=== PATIENT | male | born 1960 | race Caucasian/White ===

== ENCOUNTER 2022-06-28 18:04 | Emergency (ER) | payer MEDICARE, MEDICAID ==
[2022-06-28] MEDS: Morphine 2 MG/ML SYRINGE IVPUSH ONE (18:30)
[2022-06-28] MEDS: HYDROmorphone 1 MG/ML Syringe IVPUSH ONE ×2 (19:45→22:24)
[2022-06-28] MEDS: Take Home: Acetaminophen/oxyCODONE 325-5 MG, 5 Tab Pack PO ONE (23:11)
[2022-06-29 01:29] VITALS: BP 118/65; PULSE 75
== END 2022-06-28 23:40 | disposition home or self-care (01) ==
LOC: VM.ED 18:04
DX: S82.61XA Displaced fracture of lateral malleolus of right fibula, initial encounter for closed fracture (principal); I11.0 Hypertensive heart disease with heart failure; I50.9 Heart failure, unspecified; J44.9 Chronic obstructive pulmonary disease, unspecified; Z88.6 Allergy status to analgesic agent; Z79.01 Long term (current) use of anticoagulants; Z79.899 Other long term (current) drug therapy; W18.39XA Other fall on same level, initial encounter
CPT/HCPCS: 73610; 73620; 73700; 96374; 96375; 96376; 99284; A9270; J1170; J2270

== ENCOUNTER 2023-11-04 20:12 | Emergency (ER) | payer MEDICARE, MEDICAID ==
[2023-11-04 20:39] VITALS: BP 97/54; PULSE 70
[2023-11-04] MEDS: Take Home: Acetaminophen/HYDROcodone 325-5 MG, 5 Tab Pack PO ONE (21:20)
[2023-11-04] MEDS: methylPREDNISolone Sodium Succinate 125 MG/2 ML SDV IM ONE (21:20)
[2023-11-04] MEDS: Orphenadrine 60 MG/2 ML Inj IM ONE (21:20)
== END 2023-11-04 21:37 | disposition home or self-care (01) ==
LOC: VM.ED 20:12
DX: I87.8 Other specified disorders of veins (principal); M25.552 Pain in left hip; M54.50 Low back pain, unspecified; I11.0 Hypertensive heart disease with heart failure; I50.9 Heart failure, unspecified; J44.9 Chronic obstructive pulmonary disease, unspecified; I48.91 Unspecified atrial fibrillation; E11.9 Type 2 diabetes mellitus without complications; F17.200 Nicotine dependence, unspecified, uncomplicated; Z79.01 Long term (current) use of anticoagulants; Z88.6 Allergy status to analgesic agent; Z79.899 Other long term (current) drug therapy; Z79.51 Long term (current) use of inhaled steroids
CPT/HCPCS: 96372; 99283; A9270-GY; J2360; J2930

== ENCOUNTER 2024-07-02 12:05 | Inpatient (IN) | payer MEDICARE, MEDICAID ==
[2024-07-02] MEDS: Albuterol/Ipratropium 3.0-0.5 MG/3 ML Neb Soln NEB ONE (12:40)
[2024-07-02 12:57] LABS: BASOPHILS ABSOLUTE AUTO 0.1 x10^3/uL (0.0-0.2); BASOPHILS PERCENT AUTO 0.9 % (0.2-1.2); EOSINOPHILS ABSOLUTE AUTO 0.2 x10^3/uL (0.0-0.5); EOSINOPHILS PERCENT AUTO 2.8 % (0.0-4.0); HEMATOCRIT 35.1 % (40.0-52.0); HEMOGLOBIN 11.2 g/dL (14.0-18.0); IMMATURE GRAN ABSOLUTE AUTO 0.02 x10^3/uL (0.00-0.07); LYMPHOCYTES ABSOLUTE AUTO 0.9 x10^3/uL (1.0-4.8); LYMPHOCYTES PERCENT AUTO 15.1 % (25.0-50.0); MEAN CORPUSCULAR HEMOGLOBIN 30.5 pg (26.0-32.0); MEAN CORPUSCULAR HGB CONC 31.9 g/dL (32.0-36.0); MEAN CORPUSCULAR VOLUME 95.6 fL (78.0-93.0); MONOCYTES PERCENT AUTO 16.6 % (2.0-11.0); NEUTROPHILS ABSOLUTE AUTO 3.7 x10^3/uL (1.8-7.7); NEUTROPHILS PERCENT AUTO 64.3 % (50.0-80.0); PLATELET COUNT,PLT 147 x10^3/uL (130-400); RED BLOOD CELL COUNT 3.67 x10^6/uL (4.5-6.0); WHITE BLOOD CELL COUNT,WBC 5.8 x10^3/uL (4.0-10.0)
[2024-07-02 13:02] LABS: A/G RATIO 0.67; ALBUMIN 3.2 g/dL (3.4-5.0); BILIRUBIN TOTAL 1.2 mg/dL (0.2-1.0); CALCIUM 9.2 mg/dL (8.5-10.1); CREATININE 1.3 mg/dL (0.70-1.30); EST CRCL DRUG DOSING (CG) 53.67 mL/min
[2024-07-02] MEDS: cefTRIAXone 1 GM Vial IVPUSH ONE (13:56)
[2024-07-02] MEDS: Azithromycin 500 MG in Sodium Chloride 0.9% 250 ML IV ONE (13:59)
[2024-07-02 14:21] LABS: LACTIC ACID 1.3 mmol/L (0.4-2.0)
[2024-07-02 15:43] LABS: INR 4.9 (0.9-1.1); PROTHROMBIN TIME 45.3 SEC (8.9-11.5)
[2024-07-02] MEDS ORDERED: Nitroglycerin 0.4 MG Tab.SL SL PRN (15:48)
[2024-07-02] MEDS ORDERED: Warfarin 5 MG Tab PO SCH (16:00)
[2024-07-02] MEDS: Arformoterol 15 MCG/2 ML Neb Soln NEB SCH (17:09)
[2024-07-02] MEDS: methylPREDNISolone Sodium Succinate 40 MG/1 ML SDV IVPUSH SCH (17:10)
[2024-07-02] MEDS: Nicotine 14 MG/24 Hr Patch TRDERM SCH (17:11)
[2024-07-02] MEDS: levETIRAcetam 500 MG Tab PO SCH (21:59)
[2024-07-02] MEDS: Metoprolol Tartrate 50 MG Tab PO SCH (21:59)
[2024-07-02] MEDS: Digoxin 125 MCG Tab PO SCH (22:01)
[2024-07-02] MEDS: atorvaSTATin 10 MG Tab PO SCH (22:02)
[2024-07-02] MEDS: Sennosides/Docusate Sodium 50-8.6 MG Tab PO SCH (22:02)
[2024-07-02] MEDS: Albuterol/Ipratropium 3.0-0.5 MG/3 ML Neb Soln NEB SCH (22:06)
[2024-07-03] MEDS: Acetaminophen 650 MG Tab.ER PO PRN (03:39)
[2024-07-03] MEDS: Levothyroxine 75 MCG Tab PO SCH (06:30)
[2024-07-03 07:55] LABS: BASOPHILS PERCENT AUTO 0.3 % (0.2-1.2); HEMATOCRIT 31.9 % (40.0-52.0); HEMOGLOBIN 10.1 g/dL (14.0-18.0); IMMATURE GRAN ABSOLUTE AUTO 0.01 x10^3/uL (0.00-0.07); LYMPHOCYTES ABSOLUTE AUTO 0.5 x10^3/uL (1.0-4.8); LYMPHOCYTES PERCENT AUTO 15.1 % (25.0-50.0); MEAN CORPUSCULAR HGB CONC 31.7 g/dL (32.0-36.0); MEAN CORPUSCULAR VOLUME 94.7 fL (78.0-93.0); MONOCYTES ABSOLUTE AUTO 0.1 x10^3/uL (0.0-0.8); MONOCYTES PERCENT AUTO 3.1 % (2.0-11.0); NEUTROPHILS ABSOLUTE AUTO 2.8 x10^3/uL (1.8-7.7); NEUTROPHILS PERCENT AUTO 81.2 % (50.0-80.0); PLATELET COUNT,PLT 129 x10^3/uL (130-400); RED BLOOD CELL COUNT 3.37 x10^6/uL (4.5-6.0); WHITE BLOOD CELL COUNT,WBC 3.5 x10^3/uL (4.0-10.0)
[2024-07-03 08:12] LABS: A/G RATIO 0.63; ALBUMIN 2.9 g/dL (3.4-5.0); BILIRUBIN TOTAL 0.7 mg/dL (0.2-1.0); CALCIUM 9.1 mg/dL (8.5-10.1); CREATININE 1.5 mg/dL (0.70-1.30); EST CRCL DRUG DOSING (CG) 46.51 mL/min; PROTEIN TOTAL,TP 7.5 g/dL (6.4-8.2)
[2024-07-03 08:13] LABS: INR 4.8 (0.9-1.1)
[2024-07-03] MEDS: cefTRIAXone 1 GM Vial IVPUSH SCH (08:22)
[2024-07-03] MEDS: Diltiazem 180 MG Cap.CD PO SCH (08:25)
[2024-07-03] MEDS: Azithromycin 250 MG Tab PO SCH (08:27)
[2024-07-03] MEDS: Magnesium Oxide 400 MG Tab PO SCH (08:27)
[2024-07-03] MEDS: Multivitamin Tab PO SCH (08:28)
[2024-07-03] MEDS: Albuterol 0.083% 2.5 MG/3 ML Neb Soln NEB PRN (11:48)
[2024-07-04 08:15] LABS: BASOPHILS PERCENT AUTO 0.1 % (0.2-1.2); HEMATOCRIT 32.3 % (40.0-52.0); HEMOGLOBIN 10.5 g/dL (14.0-18.0); IMMATURE GRAN ABSOLUTE AUTO 0.03 x10^3/uL (0.00-0.07); LYMPHOCYTES ABSOLUTE AUTO 0.5 x10^3/uL (1.0-4.8); LYMPHOCYTES PERCENT AUTO 6.8 % (25.0-50.0); MEAN CORPUSCULAR HGB CONC 32.5 g/dL (32.0-36.0); MEAN CORPUSCULAR VOLUME 95.3 fL (78.0-93.0); MONOCYTES ABSOLUTE AUTO 0.4 x10^3/uL (0.0-0.8); MONOCYTES PERCENT AUTO 5.2 % (2.0-11.0); NEUTROPHILS ABSOLUTE AUTO 6.6 x10^3/uL (1.8-7.7); NEUTROPHILS PERCENT AUTO 87.5 % (50.0-80.0); PLATELET COUNT,PLT 145 x10^3/uL (130-400); RED BLOOD CELL COUNT 3.39 x10^6/uL (4.5-6.0); WHITE BLOOD CELL COUNT,WBC 7.6 x10^3/uL (4.0-10.0)
[2024-07-04 08:35] LABS: A/G RATIO 0.65; ALBUMIN 3.1 g/dL (3.4-5.0); ANION GAP 9.5 mmol/L (5-15); BILIRUBIN TOTAL 0.5 mg/dL (0.2-1.0); CALCIUM 9.8 mg/dL (8.5-10.1); CREATININE 1.7 mg/dL (0.70-1.30); EST CRCL DRUG DOSING (CG) 41.04 mL/min; POTASSIUM,K 4.5 mmol/L (3.5-5.1); PROTEIN TOTAL,TP 7.9 g/dL (6.4-8.2)
[2024-07-04 08:56] LABS: INR 3.4 (0.9-1.1); PROTHROMBIN TIME 32.3 SEC (8.9-11.5)
[2024-07-05 07:19] LABS: BASOPHILS PERCENT AUTO 0.1 % (0.2-1.2); HEMATOCRIT 31.7 % (40.0-52.0); HEMOGLOBIN 10.4 g/dL (14.0-18.0); IMMATURE GRAN ABSOLUTE AUTO 0.05 x10^3/uL (0.00-0.07); LYMPHOCYTES ABSOLUTE AUTO 0.4 x10^3/uL (1.0-4.8); LYMPHOCYTES PERCENT AUTO 5.1 % (25.0-50.0); MEAN CORPUSCULAR HEMOGLOBIN 30.9 pg (26.0-32.0); MEAN CORPUSCULAR HGB CONC 32.8 g/dL (32.0-36.0); MEAN CORPUSCULAR VOLUME 94.1 fL (78.0-93.0); MONOCYTES ABSOLUTE AUTO 0.5 x10^3/uL (0.0-0.8); MONOCYTES PERCENT AUTO 6.4 % (2.0-11.0); NEUTROPHILS ABSOLUTE AUTO 7.2 x10^3/uL (1.8-7.7); NEUTROPHILS PERCENT AUTO 87.8 % (50.0-80.0); PLATELET COUNT,PLT 151 x10^3/uL (130-400); RED BLOOD CELL COUNT 3.37 x10^6/uL (4.5-6.0); WHITE BLOOD CELL COUNT,WBC 8.2 x10^3/uL (4.0-10.0)
[2024-07-05 07:44] LABS: A/G RATIO 0.66; ALBUMIN 3.1 g/dL (3.4-5.0); BILIRUBIN TOTAL 0.5 mg/dL (0.2-1.0); CALCIUM 10.2 mg/dL (8.5-10.1); CREATININE 1.4 mg/dL (0.70-1.30); EST CRCL DRUG DOSING (CG) 49.84 mL/min; POTASSIUM,K 4.7 mmol/L (3.5-5.1); PROTEIN TOTAL,TP 7.8 g/dL (6.4-8.2)
[2024-07-05 07:56] LABS: ANION GAP 3.7 mmol/L (5-15)
[2024-07-05 08:20] LABS: INR 2.4 (0.9-1.1); PROTHROMBIN TIME 23.5 SEC (8.9-11.5)
[2024-07-05] MEDS: Bumetanide 1 MG Tab PO SCH (14:36)
[2024-07-05] MEDS: Cholecalciferol (Vitamin D3) 25 MCG Tab PO SCH (14:37)
[2024-07-05] MEDS: Warfarin 5 MG Tab PO SCH (21:14)
[2024-07-06 07:00] LABS: BASOPHILS PERCENT AUTO 0.1 % (0.2-1.2); HEMATOCRIT 32.7 % (40.0-52.0); HEMOGLOBIN 10.6 g/dL (14.0-18.0); IMMATURE GRAN ABSOLUTE AUTO 0.03 x10^3/uL (0.00-0.07); LYMPHOCYTES ABSOLUTE AUTO 0.9 x10^3/uL (1.0-4.8); LYMPHOCYTES PERCENT AUTO 11.9 % (25.0-50.0); MEAN CORPUSCULAR HEMOGLOBIN 30.7 pg (26.0-32.0); MEAN CORPUSCULAR HGB CONC 32.4 g/dL (32.0-36.0); MEAN CORPUSCULAR VOLUME 94.8 fL (78.0-93.0); MONOCYTES ABSOLUTE AUTO 1.2 x10^3/uL (0.0-0.8); NEUTROPHILS ABSOLUTE AUTO 5.3 x10^3/uL (1.8-7.7); NEUTROPHILS PERCENT AUTO 71.6 % (50.0-80.0); PLATELET COUNT,PLT 149 x10^3/uL (130-400); RED BLOOD CELL COUNT 3.45 x10^6/uL (4.5-6.0); WHITE BLOOD CELL COUNT,WBC 7.4 x10^3/uL (4.0-10.0)
[2024-07-06 07:15] LABS: INR 1.8 (0.9-1.1); PROTHROMBIN TIME 17.7 SEC (8.9-11.5)
[2024-07-06 07:21] LABS: A/G RATIO 0.7; ALBUMIN 3.2 g/dL (3.4-5.0); BILIRUBIN TOTAL 0.5 mg/dL (0.2-1.0); CALCIUM 10.5 mg/dL (8.5-10.1); CREATININE 1.3 mg/dL (0.70-1.30); EST CRCL DRUG DOSING (CG) 53.67 mL/min; POTASSIUM,K 4.9 mmol/L (3.5-5.1); PROTEIN TOTAL,TP 7.8 g/dL (6.4-8.2)
[2024-07-06 07:23] LABS: ANION GAP 4.9 mmol/L (5-15)
[2024-07-06] MEDS ORDERED: guaiFENesin/Dextromethorphan 100-10 MG/5 ML Soln 10 ML Cup PO PRN (08:34)
[2024-07-06] MEDS ORDERED: predniSONE 20 MG Tab PO SCH (09:15)
[2024-07-06] MEDS: Cefuroxime 250 MG Tab PO SCH (09:20)
[2024-07-06 10:50] VITALS: BP 119/66; PULSE 84
== END 2024-07-06 11:50 | disposition home health service (06) | DRG 193 ==
LOC: VM.ED 12:05 → VM.MS 14:25
PROVIDERS: ADMIT Internal Medicine; ATTEND Internal Medicine
DX: J18.9 Pneumonia, unspecified organism (principal); J44.1 Chronic obstructive pulmonary disease with (acute) exacerbation; I11.0 Hypertensive heart disease with heart failure; I50.9 Heart failure, unspecified; J96.21 Acute and chronic respiratory failure with hypoxia; I48.91 Unspecified atrial fibrillation; E11.9 Type 2 diabetes mellitus without complications; J44.0 Chronic obstructive pulmonary disease with (acute) lower respiratory infection; Z79.51 Long term (current) use of inhaled steroids; Z68.41 Body mass index [BMI] 40.0-44.9, adult; Z88.5 Allergy status to narcotic agent; I50.32 Chronic diastolic (congestive) heart failure; I48.20 Chronic atrial fibrillation, unspecified; I13.0 Hypertensive heart and chronic kidney disease with heart failure and stage 1 through stage 4 chronic kidney disease, or unspecified chronic kidney disease; E78.00 Pure hypercholesterolemia, unspecified; F17.200 Nicotine dependence, unspecified, uncomplicated; E66.01 Morbid (severe) obesity due to excess calories; G40.909 Epilepsy, unspecified, not intractable, without status epilepticus; G47.33 Obstructive sleep apnea (adult) (pediatric); E03.9 Hypothyroidism, unspecified; I89.0 Lymphedema, not elsewhere classified; K74.60 Unspecified cirrhosis of liver; N18.9 Chronic kidney disease, unspecified; E11.22 Type 2 diabetes mellitus with diabetic chronic kidney disease; E11.65 Type 2 diabetes mellitus with hyperglycemia; D63.1 Anemia in chronic kidney disease; I25.2 Old myocardial infarction; Z99.81 Dependence on supplemental oxygen; Z88.8 Allergy status to other drugs, medicaments and biological substances; Z79.01 Long term (current) use of anticoagulants; Z79.899 Other long term (current) drug therapy; Z98.49 Cataract extraction status, unspecified eye; Z86.718 Personal history of other venous thrombosis and embolism
CPT/HCPCS: 36415; 71045; 80053; 82947; 83605; 83880; 84484; 85025; 85610; 87040; 87070; 87205; 87428-QW; 93010; 94640; 94667; 94760; 96365; 96375; 97116-GP; 97161-GP; 97165-GO; 97530-GP; 97535-GO; 99232; 99233; 99284; 99285-25; A9270-GY; J0456; J0696; J2919; J3490; J7050; J7613-GY; J7620-GY

== ENCOUNTER 2024-07-08 12:44 | Inpatient (IN) | payer MEDICARE, MEDICAID ==
[2024-07-08] MEDS ORDERED: Albuterol 0.083% 2.5 MG/3 ML Neb Soln NEB PRN (15:39)
[2024-07-08] MEDS ORDERED: Nitroglycerin 0.4 MG Tab.SL SL PRN (15:39)
[2024-07-08] MEDS: Formoterol/Mometasone 200-5 MCG 13 GM Inhaler INH SCH (20:33)
[2024-07-08] MEDS: levETIRAcetam 500 MG Tab PO SCH (20:34)
[2024-07-08] MEDS: Metoprolol Tartrate 50 MG Tab PO SCH (20:34)
[2024-07-08] MEDS: Ipratropium 0.02% 0.5 MG/2.5 ML Neb Soln INH SCH (20:34)
[2024-07-08] MEDS: Sennosides 8.6 MG Tab PO SCH (20:35)
[2024-07-08] MEDS: Warfarin 2.5 MG Tab PO SCH (20:35)
[2024-07-08] MEDS: Digoxin 125 MCG Tab PO SCH (20:36)
[2024-07-08] MEDS: Cefuroxime 250 MG Tab PO SCH (20:36)
[2024-07-08] MEDS: atorvaSTATin 10 MG Tab PO SCH (20:36)
[2024-07-08] MEDS: Bumetanide 1 MG Tab PO SCH (20:36)
[2024-07-09] MEDS: Levothyroxine 75 MCG Tab PO SCH (06:24)
[2024-07-09 07:15] LABS: INR 1.9 (0.9-1.1); PROTHROMBIN TIME 18.3 SEC (8.9-11.5)
[2024-07-09] MEDS: Potassium Chloride 20 MEQ Tab.ER PO SCH (08:47)
[2024-07-09] MEDS: Cholecalciferol (Vitamin D3) 25 MCG Tab PO SCH (08:47)
[2024-07-09] MEDS: Diltiazem 180 MG Cap.CD PO SCH (08:47)
[2024-07-09] MEDS: Magnesium Oxide 400 MG Tab PO SCH (08:47)
[2024-07-09] MEDS: predniSONE 20 MG Tab PO SCH (08:47)
[2024-07-09] MEDS: Multivitamin Tab PO SCH (08:47)
[2024-07-09] MEDS: Nicotine 14 MG/24 Hr Patch TRDERM SCH (08:48)
[2024-07-09] MEDS: Acetaminophen 325 MG Tab PO PRN (12:19)
[2024-07-09] MEDS: guaiFENesin/Dextromethorphan 100-10 MG/5 ML Soln 10 ML Cup PO PRN (15:32)
[2024-07-09] MEDS: Warfarin 5 MG Tab PO SCH (20:37)
[2024-07-12 07:15] LABS: BASOPHILS PERCENT AUTO 0.1 % (0.2-1.2); EOSINOPHILS ABSOLUTE AUTO 0.1 x10^3/uL (0.0-0.5); EOSINOPHILS PERCENT AUTO 1.2 % (0.0-4.0); HEMOGLOBIN 10.6 g/dL (14.0-18.0); IMMATURE GRAN ABSOLUTE AUTO 0.03 x10^3/uL (0.00-0.07); LYMPHOCYTES ABSOLUTE AUTO 1.5 x10^3/uL (1.0-4.8); LYMPHOCYTES PERCENT AUTO 18.9 % (25.0-50.0); MEAN CORPUSCULAR HEMOGLOBIN 30.6 pg (26.0-32.0); MEAN CORPUSCULAR HGB CONC 33.1 g/dL (32.0-36.0); MEAN CORPUSCULAR VOLUME 92.5 fL (78.0-93.0); MONOCYTES ABSOLUTE AUTO 1.1 x10^3/uL (0.0-0.8); MONOCYTES PERCENT AUTO 14.2 % (2.0-11.0); NEUTROPHILS ABSOLUTE AUTO 5.2 x10^3/uL (1.8-7.7); NEUTROPHILS PERCENT AUTO 65.2 % (50.0-80.0); PLATELET COUNT,PLT 117 x10^3/uL (130-400); RED BLOOD CELL COUNT 3.46 x10^6/uL (4.5-6.0)
[2024-07-12 07:21] LABS: CALCIUM 9.3 mg/dL (8.5-10.1); CREATININE 1.1 mg/dL (0.70-1.30); EST CRCL DRUG DOSING (CG) 63.43 mL/min
[2024-07-12 07:22] LABS: PROTHROMBIN TIME 19.4 SEC (8.9-11.5)
[2024-07-13] MEDS: Albuterol/Ipratropium 3.0-0.5 MG/3 ML Neb Soln NEB PRN (07:14)
[2024-07-13] MEDS: Tiotropium Bromide 4 GM Inhalation Spray (2.5mcg/1 dose; 10 doses) INH SCH (14:50)
[2024-07-19 07:01] LABS: BASOPHILS PERCENT AUTO 0.6 % (0.2-1.2); EOSINOPHILS ABSOLUTE AUTO 0.2 x10^3/uL (0.0-0.5); EOSINOPHILS PERCENT AUTO 2.1 % (0.0-4.0); HEMOGLOBIN 9.7 g/dL (14.0-18.0); IMMATURE GRAN ABSOLUTE AUTO 0.01 x10^3/uL (0.00-0.07); LYMPHOCYTES ABSOLUTE AUTO 1.1 x10^3/uL (1.0-4.8); LYMPHOCYTES PERCENT AUTO 15.8 % (25.0-50.0); MEAN CORPUSCULAR HEMOGLOBIN 29.9 pg (26.0-32.0); MEAN CORPUSCULAR HGB CONC 31.3 g/dL (32.0-36.0); MEAN CORPUSCULAR VOLUME 95.7 fL (78.0-93.0); MONOCYTES ABSOLUTE AUTO 1.1 x10^3/uL (0.0-0.8); MONOCYTES PERCENT AUTO 15.2 % (2.0-11.0); NEUTROPHILS ABSOLUTE AUTO 4.7 x10^3/uL (1.8-7.7); NEUTROPHILS PERCENT AUTO 66.2 % (50.0-80.0); PLATELET COUNT,PLT 115 x10^3/uL (130-400); RED BLOOD CELL COUNT 3.24 x10^6/uL (4.5-6.0); WHITE BLOOD CELL COUNT,WBC 7.1 x10^3/uL (4.0-10.0)
[2024-07-19 07:13] LABS: CALCIUM 9.5 mg/dL (8.5-10.1); CREATININE 1.3 mg/dL (0.70-1.30); EST CRCL DRUG DOSING (CG) 52.96 mL/min; POTASSIUM,K 4.4 mmol/L (3.5-5.1)
[2024-07-19 07:14] LABS: ANION GAP 1.4 mmol/L (5-15)
[2024-07-19 07:16] LABS: PROTHROMBIN TIME 19.3 SEC (8.9-11.5)
[2024-07-19] MEDS: Bumetanide 1 MG Tab PO SCH (09:51)
[2024-07-19] MEDS: Furosemide 40 MG/4 ML VIAL IV ONE (10:21)
[2024-07-19] MEDS: Sodium Chloride 0.9% 10 ML Syringe FLUSH PRN (10:23)
[2024-07-19] MEDS: Famotidine 20 MG Tab PO SCH (13:00)
[2024-07-20 06:52] LABS: BASOPHILS ABSOLUTE AUTO 0.1 x10^3/uL (0.0-0.2); BASOPHILS PERCENT AUTO 0.9 % (0.2-1.2); EOSINOPHILS ABSOLUTE AUTO 0.1 x10^3/uL (0.0-0.5); EOSINOPHILS PERCENT AUTO 2.3 % (0.0-4.0); HEMATOCRIT 30.6 % (40.0-52.0); HEMOGLOBIN 9.7 g/dL (14.0-18.0); LYMPHOCYTES PERCENT AUTO 17.3 % (25.0-50.0); MEAN CORPUSCULAR HEMOGLOBIN 30.2 pg (26.0-32.0); MEAN CORPUSCULAR HGB CONC 31.7 g/dL (32.0-36.0); MEAN CORPUSCULAR VOLUME 95.3 fL (78.0-93.0); MONOCYTES ABSOLUTE AUTO 0.9 x10^3/uL (0.0-0.8); MONOCYTES PERCENT AUTO 15.4 % (2.0-11.0); NEUTROPHILS ABSOLUTE AUTO 3.6 x10^3/uL (1.8-7.7); NEUTROPHILS PERCENT AUTO 64.1 % (50.0-80.0); PLATELET COUNT,PLT 111 x10^3/uL (130-400); RED BLOOD CELL COUNT 3.21 x10^6/uL (4.5-6.0); WHITE BLOOD CELL COUNT,WBC 5.6 x10^3/uL (4.0-10.0)
[2024-07-20 07:07] LABS: CALCIUM 8.6 mg/dL (8.5-10.1); CREATININE 1.3 mg/dL (0.70-1.30); EST CRCL DRUG DOSING (CG) 52.96 mL/min; POTASSIUM,K 4.2 mmol/L (3.5-5.1)
[2024-07-20 07:11] LABS: ANION GAP 5.2 mmol/L (5-15)
[2024-07-20] MEDS ORDERED: Furosemide 40 MG/4 ML VIAL IV ONE (08:19)
[2024-07-20] MEDS: Furosemide 100 MG/10 ML SDV IV ONE (08:53)
[2024-07-20] MEDS: Magnesium Oxide 400 MG Tab PO SCH (08:58)
[2024-07-20] MEDS: Spironolactone 25 MG Tab PO SCH (08:59)
[2024-07-20 10:49] VITALS: BP 104/64; PULSE 84
== END 2024-07-20 11:20 | disposition home health service (06) | DRG 948 ==
LOC: VM.MS 14:17
PROVIDERS: ADMIT Internal Medicine; ATTEND Internal Medicine
DX: R53.1 Weakness (principal); I50.32 Chronic diastolic (congestive) heart failure; Z68.42 Body mass index [BMI] 45.0-49.9, adult; I13.0 Hypertensive heart and chronic kidney disease with heart failure and stage 1 through stage 4 chronic kidney disease, or unspecified chronic kidney disease; J44.9 Chronic obstructive pulmonary disease, unspecified; E78.00 Pure hypercholesterolemia, unspecified; F17.210 Nicotine dependence, cigarettes, uncomplicated; I48.0 Paroxysmal atrial fibrillation; G47.33 Obstructive sleep apnea (adult) (pediatric); E66.01 Morbid (severe) obesity due to excess calories; G40.909 Epilepsy, unspecified, not intractable, without status epilepticus; R53.81 Other malaise; N18.9 Chronic kidney disease, unspecified; D63.1 Anemia in chronic kidney disease; E11.22 Type 2 diabetes mellitus with diabetic chronic kidney disease; Z99.81 Dependence on supplemental oxygen; Z88.8 Allergy status to other drugs, medicaments and biological substances; Z79.899 Other long term (current) drug therapy; Z79.01 Long term (current) use of anticoagulants; Z79.51 Long term (current) use of inhaled steroids; Z98.49 Cataract extraction status, unspecified eye
CPT/HCPCS: 36415; 80048; 83735; 85025; 85610; 94640; 94760; 95851-GO; 97110-GP; 97116-GP; 97161-GP; 97165-GO; 97535-GO; A9270-GY; J1940; J3490; J7512; J7620-GY

== ENCOUNTER 2024-07-28 15:08 | Inpatient (IN) | payer MEDICARE, MEDICAID ==
[2024-07-28] MEDS ORDERED: Sodium Chloride 0.9% 10 ML Syringe FLUSH PRN (16:09)
[2024-07-28 16:43] LABS: BASOPHILS PERCENT AUTO 0.6 % (0.2-1.2); EOSINOPHILS ABSOLUTE AUTO 0.2 x10^3/uL (0.0-0.5); EOSINOPHILS PERCENT AUTO 3.1 % (0.0-4.0); HEMOGLOBIN 10.5 g/dL (14.0-18.0); IMMATURE GRAN ABSOLUTE AUTO 0.01 x10^3/uL (0.00-0.07); LYMPHOCYTES ABSOLUTE AUTO 1.2 x10^3/uL (1.0-4.8); LYMPHOCYTES PERCENT AUTO 23.8 % (25.0-50.0); MEAN CORPUSCULAR HEMOGLOBIN 30.8 pg (26.0-32.0); MEAN CORPUSCULAR HGB CONC 31.8 g/dL (32.0-36.0); MEAN CORPUSCULAR VOLUME 96.8 fL (78.0-93.0); MONOCYTES ABSOLUTE AUTO 0.9 x10^3/uL (0.0-0.8); MONOCYTES PERCENT AUTO 18.7 % (2.0-11.0); NEUTROPHILS ABSOLUTE AUTO 2.6 x10^3/uL (1.8-7.7); NEUTROPHILS PERCENT AUTO 53.6 % (50.0-80.0); PLATELET COUNT,PLT 90 x10^3/uL (130-400); RED BLOOD CELL COUNT 3.41 x10^6/uL (4.5-6.0); WHITE BLOOD CELL COUNT,WBC 4.9 x10^3/uL (4.0-10.0)
[2024-07-28 16:54] LABS: INR 1.9 (0.9-1.1); PROTHROMBIN TIME 19.1 SEC (8.9-11.5)
[2024-07-28] MEDS ORDERED: Sennosides/Docusate Sodium 50-8.6 MG Tab PO PRN (16:55)
[2024-07-28] MEDS ORDERED: Nitroglycerin 0.4 MG Tab.SL SL PRN (16:55)
[2024-07-28] MEDS ORDERED: Albuterol 0.083% 2.5 MG/3 ML Neb Soln NEB PRN (16:55)
[2024-07-28 17:23] LABS: HCO3 VENOUS,POC 42 mmol/L (22-29); O2 SATURATION VENOUS,POC 82 %; PCO2 VENOUS,POC 68 mmHg (41-51); PO2 VENOUS,POC 48 mmHg
[2024-07-28 17:33] LABS: A/G RATIO 0.82; ALBUMIN 3.1 g/dL (3.4-5.0); BILIRUBIN TOTAL 1.3 mg/dL (0.2-1.0); CALCIUM 9.7 mg/dL (8.5-10.1); CREATININE 1.3 mg/dL (0.70-1.30); EST CRCL DRUG DOSING (CG) 52.96 mL/min; POTASSIUM,K 3.8 mmol/L (3.5-5.1); PROTEIN TOTAL,TP 6.9 g/dL (6.4-8.2)
[2024-07-28] MEDS: Furosemide 40 MG/4 ML VIAL IV ONE (17:53)
[2024-07-28] MEDS: Magnesium Sulfate/Water Premix 2 GM in Premix Bag 1 BAG IV ONE (18:13)
[2024-07-28] MEDS: Spironolactone 25 MG Tab PO SCH (19:33)
[2024-07-28] MEDS: Lactulose Soln 10 GM/15 ML 30 ML UD Cup PO SCH (19:34)
[2024-07-28] MEDS: Ipratropium 0.02% 0.5 MG/2.5 ML Neb Soln INH SCH (20:26)
[2024-07-28] MEDS: Formoterol/Mometasone 200-5 MCG 13 GM Inhaler INH SCH (20:27)
[2024-07-28] MEDS: levETIRAcetam 500 MG Tab PO SCH (20:27)
[2024-07-28] MEDS: Warfarin 5 MG Tab PO SCH (20:28)
[2024-07-28] MEDS: atorvaSTATin 10 MG Tab PO SCH (20:28)
[2024-07-28] MEDS: Metoprolol Succinate 50 MG Tab.ER PO SCH (20:28)
[2024-07-28] MEDS: Digoxin 125 MCG Tab PO SCH (20:37)
[2024-07-29] MEDS: Levothyroxine 75 MCG Tab PO SCH (06:17)
[2024-07-29 06:47] LABS: BASOPHILS PERCENT AUTO 0.4 % (0.2-1.2); EOSINOPHILS ABSOLUTE AUTO 0.2 x10^3/uL (0.0-0.5); EOSINOPHILS PERCENT AUTO 3.6 % (0.0-4.0); HEMATOCRIT 32.3 % (40.0-52.0); HEMOGLOBIN 10.2 g/dL (14.0-18.0); LYMPHOCYTES ABSOLUTE AUTO 1.2 x10^3/uL (1.0-4.8); LYMPHOCYTES PERCENT AUTO 27.6 % (25.0-50.0); MEAN CORPUSCULAR HEMOGLOBIN 30.1 pg (26.0-32.0); MEAN CORPUSCULAR HGB CONC 31.6 g/dL (32.0-36.0); MEAN CORPUSCULAR VOLUME 95.3 fL (78.0-93.0); MONOCYTES ABSOLUTE AUTO 0.8 x10^3/uL (0.0-0.8); MONOCYTES PERCENT AUTO 17.7 % (2.0-11.0); NEUTROPHILS ABSOLUTE AUTO 2.3 x10^3/uL (1.8-7.7); NEUTROPHILS PERCENT AUTO 50.7 % (50.0-80.0); PLATELET COUNT,PLT 83 x10^3/uL (130-400); RED BLOOD CELL COUNT 3.39 x10^6/uL (4.5-6.0); WHITE BLOOD CELL COUNT,WBC 4.5 x10^3/uL (4.0-10.0)
[2024-07-29] MEDS ORDERED: Levothyroxine 75 MCG Tab PO SCH (07:00)
[2024-07-29 07:03] LABS: INR 1.8 (0.9-1.1); PROTHROMBIN TIME 17.6 SEC (8.9-11.5)
[2024-07-29 07:10] LABS: A/G RATIO 0.81; ALBUMIN 2.9 g/dL (3.4-5.0); BILIRUBIN TOTAL 1.3 mg/dL (0.2-1.0); CALCIUM 9.5 mg/dL (8.5-10.1); CREATININE 1.2 mg/dL (0.70-1.30); EST CRCL DRUG DOSING (CG) 57.38 mL/min; POTASSIUM,K 3.9 mmol/L (3.5-5.1); PROTEIN TOTAL,TP 6.5 g/dL (6.4-8.2)
[2024-07-29 07:13] LABS: ANION GAP 4.9 mmol/L (5-15)
[2024-07-29] MEDS: Cholecalciferol (Vitamin D3) 25 MCG Tab PO SCH (08:57)
[2024-07-29] MEDS: Magnesium Oxide 400 MG Tab PO SCH (08:57)
[2024-07-29] MEDS: Multivitamin Tab PO SCH (09:00)
[2024-07-29] MEDS: Furosemide 40 MG/4 ML VIAL IV SCH (09:00)
[2024-07-29] MEDS: Albuterol/Ipratropium 3.0-0.5 MG/3 ML Neb Soln NEB SCH (09:00)
[2024-07-29] MEDS ORDERED: Magnesium Oxide 400 MG Tab PO SCH (09:00)
[2024-07-29] MEDS: Amoxicillin/Clavulanate K 875-125 MG Tab PO SCH (12:51)
[2024-07-29] MEDS ORDERED: Warfarin 2.5 MG Tab PO SCH (20:00)
[2024-07-29] MEDS: Warfarin 5 MG Tab PO SCH (21:00)
[2024-07-30 07:01] LABS: BASOPHILS PERCENT AUTO 0.5 % (0.2-1.2); EOSINOPHILS ABSOLUTE AUTO 0.1 x10^3/uL (0.0-0.5); HEMATOCRIT 30.1 % (40.0-52.0); HEMOGLOBIN 9.7 g/dL (14.0-18.0); IMMATURE GRAN ABSOLUTE AUTO 0.01 x10^3/uL (0.00-0.07); LYMPHOCYTES ABSOLUTE AUTO 1.3 x10^3/uL (1.0-4.8); LYMPHOCYTES PERCENT AUTO 31.7 % (25.0-50.0); MEAN CORPUSCULAR HEMOGLOBIN 30.5 pg (26.0-32.0); MEAN CORPUSCULAR HGB CONC 32.2 g/dL (32.0-36.0); MEAN CORPUSCULAR VOLUME 94.7 fL (78.0-93.0); MONOCYTES ABSOLUTE AUTO 0.7 x10^3/uL (0.0-0.8); MONOCYTES PERCENT AUTO 17.8 % (2.0-11.0); NEUTROPHILS ABSOLUTE AUTO 1.9 x10^3/uL (1.8-7.7); NEUTROPHILS PERCENT AUTO 46.8 % (50.0-80.0); PLATELET COUNT,PLT 87 x10^3/uL (130-400); RED BLOOD CELL COUNT 3.18 x10^6/uL (4.5-6.0)
[2024-07-30 07:14] LABS: INR 1.9 (0.9-1.1); PROTHROMBIN TIME 18.4 SEC (8.9-11.5)
[2024-07-30 07:24] LABS: A/G RATIO 0.8; ALBUMIN 2.8 g/dL (3.4-5.0); CALCIUM 9.4 mg/dL (8.5-10.1); CREATININE 1.1 mg/dL (0.70-1.30); EST CRCL DRUG DOSING (CG) 62.59 mL/min; POTASSIUM,K 3.6 mmol/L (3.5-5.1); PROTEIN TOTAL,TP 6.3 g/dL (6.4-8.2)
[2024-07-30 07:40] LABS: ANION GAP 1.6 mmol/L (5-15)
[2024-07-30] MEDS: Spironolactone 25 MG Tab PO SCH (08:47)
[2024-07-30] MEDS: Acetaminophen 650 MG Tab.ER PO PRN (23:52)
[2024-07-31 08:25] LABS: BASOPHILS PERCENT AUTO 0.7 % (0.2-1.2); EOSINOPHILS ABSOLUTE AUTO 0.2 x10^3/uL (0.0-0.5); EOSINOPHILS PERCENT AUTO 4.7 % (0.0-4.0); HEMATOCRIT 33.7 % (40.0-52.0); HEMOGLOBIN 10.7 g/dL (14.0-18.0); LYMPHOCYTES ABSOLUTE AUTO 1.1 x10^3/uL (1.0-4.8); LYMPHOCYTES PERCENT AUTO 24.7 % (25.0-50.0); MEAN CORPUSCULAR HEMOGLOBIN 30.7 pg (26.0-32.0); MEAN CORPUSCULAR HGB CONC 31.8 g/dL (32.0-36.0); MEAN CORPUSCULAR VOLUME 96.6 fL (78.0-93.0); MONOCYTES ABSOLUTE AUTO 0.7 x10^3/uL (0.0-0.8); MONOCYTES PERCENT AUTO 16.4 % (2.0-11.0); NEUTROPHILS ABSOLUTE AUTO 2.4 x10^3/uL (1.8-7.7); NEUTROPHILS PERCENT AUTO 53.5 % (50.0-80.0); PLATELET COUNT,PLT 106 x10^3/uL (130-400); RED BLOOD CELL COUNT 3.49 x10^6/uL (4.5-6.0); WHITE BLOOD CELL COUNT,WBC 4.5 x10^3/uL (4.0-10.0)
[2024-07-31 08:38] LABS: INR 2.2 (0.9-1.1); PROTHROMBIN TIME 21.2 SEC (8.9-11.5)
[2024-07-31 08:41] LABS: A/G RATIO 0.79; CALCIUM 9.7 mg/dL (8.5-10.1); CREATININE 1.1 mg/dL (0.70-1.30); EST CRCL DRUG DOSING (CG) 62.59 mL/min; POTASSIUM,K 3.7 mmol/L (3.5-5.1); PROTEIN TOTAL,TP 6.8 g/dL (6.4-8.2)
[2024-07-31 08:42] LABS: ANION GAP 2.7 mmol/L (5-15)
[2024-07-31] MEDS: Warfarin 2.5 MG Tab PO SCH (21:01)
[2024-08-01 08:31] LABS: BASOPHILS PERCENT AUTO 0.4 % (0.2-1.2); EOSINOPHILS ABSOLUTE AUTO 0.2 x10^3/uL (0.0-0.5); EOSINOPHILS PERCENT AUTO 4.1 % (0.0-4.0); HEMATOCRIT 34.1 % (40.0-52.0); HEMOGLOBIN 10.9 g/dL (14.0-18.0); IMMATURE GRAN ABSOLUTE AUTO 0.01 x10^3/uL (0.00-0.07); LYMPHOCYTES ABSOLUTE AUTO 1.3 x10^3/uL (1.0-4.8); LYMPHOCYTES PERCENT AUTO 27.6 % (25.0-50.0); MEAN CORPUSCULAR HEMOGLOBIN 30.5 pg (26.0-32.0); MEAN CORPUSCULAR VOLUME 95.5 fL (78.0-93.0); MONOCYTES ABSOLUTE AUTO 0.7 x10^3/uL (0.0-0.8); NEUTROPHILS ABSOLUTE AUTO 2.6 x10^3/uL (1.8-7.7); NEUTROPHILS PERCENT AUTO 52.7 % (50.0-80.0); PLATELET COUNT,PLT 109 x10^3/uL (130-400); RED BLOOD CELL COUNT 3.57 x10^6/uL (4.5-6.0); WHITE BLOOD CELL COUNT,WBC 4.9 x10^3/uL (4.0-10.0)
[2024-08-01 08:33] LABS: INR 2.5 (0.9-1.1); PROTHROMBIN TIME 24.5 SEC (8.9-11.5)
[2024-08-01 08:51] LABS: A/G RATIO 0.7; ALBUMIN 2.8 g/dL (3.4-5.0); CALCIUM 9.8 mg/dL (8.5-10.1); EST CRCL DRUG DOSING (CG) 68.85 mL/min; POTASSIUM,K 3.4 mmol/L (3.5-5.1); PROTEIN TOTAL,TP 6.8 g/dL (6.4-8.2)
[2024-08-01 08:53] LABS: ANION GAP 4.4 mmol/L (5-15)
[2024-08-02 06:54] LABS: BASOPHILS PERCENT AUTO 0.4 % (0.2-1.2); EOSINOPHILS ABSOLUTE AUTO 0.2 x10^3/uL (0.0-0.5); HEMOGLOBIN 10.1 g/dL (14.0-18.0); IMMATURE GRAN ABSOLUTE AUTO 0.01 x10^3/uL (0.00-0.07); LYMPHOCYTES ABSOLUTE AUTO 1.2 x10^3/uL (1.0-4.8); LYMPHOCYTES PERCENT AUTO 25.5 % (25.0-50.0); MEAN CORPUSCULAR HEMOGLOBIN 29.9 pg (26.0-32.0); MEAN CORPUSCULAR HGB CONC 31.6 g/dL (32.0-36.0); MEAN CORPUSCULAR VOLUME 94.7 fL (78.0-93.0); MONOCYTES ABSOLUTE AUTO 0.8 x10^3/uL (0.0-0.8); MONOCYTES PERCENT AUTO 17.6 % (2.0-11.0); NEUTROPHILS ABSOLUTE AUTO 2.5 x10^3/uL (1.8-7.7); NEUTROPHILS PERCENT AUTO 51.3 % (50.0-80.0); PLATELET COUNT,PLT 105 x10^3/uL (130-400); RED BLOOD CELL COUNT 3.38 x10^6/uL (4.5-6.0); WHITE BLOOD CELL COUNT,WBC 4.8 x10^3/uL (4.0-10.0)
[2024-08-02 07:10] LABS: INR 2.3 (0.9-1.1); PROTHROMBIN TIME 22.7 SEC (8.9-11.5)
[2024-08-02 07:16] LABS: A/G RATIO 0.78; ALBUMIN 2.9 g/dL (3.4-5.0); BILIRUBIN TOTAL 0.8 mg/dL (0.2-1.0); CALCIUM 9.4 mg/dL (8.5-10.1); EST CRCL DRUG DOSING (CG) 68.85 mL/min; MAGNESIUM 1.6 mg/dL (1.8-2.4); POTASSIUM,K 4.2 mmol/L (3.5-5.1); PROTEIN TOTAL,TP 6.6 g/dL (6.4-8.2)
[2024-08-02 07:17] LABS: ANION GAP 2.2 mmol/L (5-15)
[2024-08-02] MEDS: Lactulose Soln 10 GM/15 ML 30 ML UD Cup PO SCH (09:00)
[2024-08-02] MEDS: Bumetanide 1 MG Tab PO SCH (10:00)
[2024-08-02 11:37] VITALS: BP 110/56; PULSE 88
== END 2024-08-02 12:00 | disposition swing bed (61) | DRG 291 ==
LOC: VM.MS 15:08
PROVIDERS: ADMIT Internal Medicine; ATTEND Internal Medicine
DX: I50.33 Acute on chronic diastolic (congestive) heart failure (principal); J18.9 Pneumonia, unspecified organism; J96.22 Acute and chronic respiratory failure with hypercapnia; J96.21 Acute and chronic respiratory failure with hypoxia; I42.8 Other cardiomyopathies; J44.0 Chronic obstructive pulmonary disease with (acute) lower respiratory infection; E44.0 Moderate protein-calorie malnutrition; I85.00 Esophageal varices without bleeding; Z68.41 Body mass index [BMI] 40.0-44.9, adult; K76.82 Hepatic encephalopathy; E11.51 Type 2 diabetes mellitus with diabetic peripheral angiopathy without gangrene; R10.9 Unspecified abdominal pain; E83.42 Hypomagnesemia; E78.5 Hyperlipidemia, unspecified; K74.60 Unspecified cirrhosis of liver; I48.91 Unspecified atrial fibrillation; I89.0 Lymphedema, not elsewhere classified; E66.01 Morbid (severe) obesity due to excess calories; Z74.09 Other reduced mobility; G47.33 Obstructive sleep apnea (adult) (pediatric); G40.909 Epilepsy, unspecified, not intractable, without status epilepticus; E03.9 Hypothyroidism, unspecified; D69.6 Thrombocytopenia, unspecified; I10 Essential (primary) hypertension; Z87.891 Personal history of nicotine dependence; Z88.8 Allergy status to other drugs, medicaments and biological substances; Z79.01 Long term (current) use of anticoagulants; Z86.718 Personal history of other venous thrombosis and embolism
CPT/HCPCS: 36415; 74176; 80053; 82140; 82803; 82947; 83735; 83880; 84443; 84484; 85025; 85610; 93005; 94640; 94667; 94668; 94760; 97110-GP; 97116-GP; 97161-GP; 97165-GO; 97535-GO; 99232; A9270-GY; J1940; J3475; J3490; J7620-GY

== ENCOUNTER 2024-08-02 08:55 | Inpatient (IN) | payer MEDICARE, MEDICAID ==
[2024-08-02] MEDS ORDERED: Nitroglycerin 0.4 MG Tab.SL SL PRN (08:58)
[2024-08-02] MEDS ORDERED: Albuterol 0.083% 2.5 MG/3 ML Neb Soln NEB PRN (08:58)
[2024-08-02] MEDS ORDERED: Sennosides/Docusate Sodium 50-8.6 MG Tab PO PRN (08:58)
[2024-08-02] MEDS ORDERED: Acetaminophen 650 MG Tab.ER PO PRN (08:58)
[2024-08-02 09:21] LABS: APPEARANCE,URINE CLEAR (CLEAR); BILIRUBIN,URINE NEGATIVE (NEGATIVE); COLOR,URINE YELLOW (YELLOW); GLUCOSE,URINE NEGATIVE (NEGATIVE); KETONES,URINE NEGATIVE (NEGATIVE); LEUKOCYTE ESTERASE,URINE NEGATIVE (NEGATIVE); NITRITE,URINE NEGATIVE (NEGATIVE); OCCULT BLOOD,URINE NEGATIVE (NEGATIVE); PH,URINE 6.5 (5.0-8.0); PROTEIN,URINE NEGATIVE (NEGATIVE); UROBILINOGEN,URINE 0.2 EU/dL (0.2)
[2024-08-02] MEDS: Cholecalciferol (Vitamin D3) 25 MCG Tab PO SCH (12:56)
[2024-08-02] MEDS: Bumetanide 1 MG Tab PO SCH (14:17)
[2024-08-02] MEDS: Albuterol/Ipratropium 3.0-0.5 MG/3 ML Neb Soln NEB SCH (14:37)
[2024-08-02] MEDS: Amoxicillin/Clavulanate K 875-125 MG Tab PO SCH (20:54)
[2024-08-02] MEDS: levETIRAcetam 500 MG Tab PO SCH (20:54)
[2024-08-02] MEDS: Digoxin 125 MCG Tab PO SCH (20:55)
[2024-08-02] MEDS: Magnesium Oxide 400 MG Tab PO SCH (20:55)
[2024-08-02] MEDS: atorvaSTATin 10 MG Tab PO SCH (20:55)
[2024-08-02] MEDS: Metoprolol Succinate 50 MG Tab.ER PO SCH (20:55)
[2024-08-02] MEDS: Warfarin 5 MG Tab PO SCH (20:58)
[2024-08-02] MEDS: Formoterol/Mometasone 200-5 MCG 13 GM Inhaler INH SCH (20:59)
[2024-08-03] MEDS: Omeprazole 20 MG Cap.CR PO SCH (06:49)
[2024-08-03] MEDS: Levothyroxine 100 MCG Tab PO SCH (06:49)
[2024-08-03] MEDS ORDERED: Levothyroxine 75 MCG Tab PO SCH (07:00)
[2024-08-03] MEDS: Spironolactone 25 MG Tab PO SCH (08:19)
[2024-08-03] MEDS: Lactulose Soln 10 GM/15 ML 30 ML UD Cup PO SCH (08:20)
[2024-08-03] MEDS: Multivitamin Tab PO SCH (08:20)
[2024-08-03] MEDS: Warfarin 2.5 MG Tab PO SCH (21:00)
[2024-08-04 07:37] LABS: PROTHROMBIN TIME 19.5 SEC (8.9-11.5)
[2024-08-04 07:59] LABS: BASOPHILS PERCENT AUTO 0.5 % (0.2-1.2); EOSINOPHILS ABSOLUTE AUTO 0.1 x10^3/uL (0.0-0.5); EOSINOPHILS PERCENT AUTO 3.3 % (0.0-4.0); HEMATOCRIT 36.5 % (40.0-52.0); HEMOGLOBIN 12.3 g/dL (14.0-18.0); IMMATURE GRAN ABSOLUTE AUTO 0.02 x10^3/uL (0.00-0.07); LYMPHOCYTES ABSOLUTE AUTO 0.6 x10^3/uL (1.0-4.8); MEAN CORPUSCULAR HEMOGLOBIN 31.4 pg (26.0-32.0); MEAN CORPUSCULAR HGB CONC 33.7 g/dL (32.0-36.0); MEAN CORPUSCULAR VOLUME 93.1 fL (78.0-93.0); MONOCYTES ABSOLUTE AUTO 0.6 x10^3/uL (0.0-0.8); MONOCYTES PERCENT AUTO 15.2 % (2.0-11.0); NEUTROPHILS ABSOLUTE AUTO 2.6 x10^3/uL (1.8-7.7); NEUTROPHILS PERCENT AUTO 65.5 % (50.0-80.0); PLATELET COUNT,PLT 166 x10^3/uL (130-400); RED BLOOD CELL COUNT 3.92 x10^6/uL (4.5-6.0); WHITE BLOOD CELL COUNT,WBC 3.9 x10^3/uL (4.0-10.0)
[2024-08-04 09:08] LABS: A/G RATIO 0.76; ALBUMIN 2.9 g/dL (3.4-5.0); BILIRUBIN TOTAL 0.9 mg/dL (0.2-1.0); CALCIUM 9.2 mg/dL (8.5-10.1); CREATININE 1.1 mg/dL (0.70-1.30); EST CRCL DRUG DOSING (CG) 62.59 mL/min; POTASSIUM,K 4.1 mmol/L (3.5-5.1); PROTEIN TOTAL,TP 6.7 g/dL (6.4-8.2)
[2024-08-04 09:09] LABS: ANION GAP 4.1 mmol/L (5-15)
[2024-08-04 10:30] VITALS: BP 107/62; PULSE 88
== END 2024-08-04 10:35 | DRG 948 ==
LOC: VM.MS 12:08
PROVIDERS: ADMIT Internal Medicine; ATTEND Internal Medicine
DX: R53.81 Other malaise (principal); E44.0 Moderate protein-calorie malnutrition; I85.10 Secondary esophageal varices without bleeding; J96.11 Chronic respiratory failure with hypoxia; Z68.41 Body mass index [BMI] 40.0-44.9, adult; J96.12 Chronic respiratory failure with hypercapnia; I50.32 Chronic diastolic (congestive) heart failure; R26.89 Other abnormalities of gait and mobility; I89.0 Lymphedema, not elsewhere classified; I48.91 Unspecified atrial fibrillation; E66.9 Obesity, unspecified; G47.33 Obstructive sleep apnea (adult) (pediatric); G40.909 Epilepsy, unspecified, not intractable, without status epilepticus; K76.82 Hepatic encephalopathy; E03.9 Hypothyroidism, unspecified; K74.60 Unspecified cirrhosis of liver; E11.9 Type 2 diabetes mellitus without complications; I11.0 Hypertensive heart disease with heart failure; E83.42 Hypomagnesemia; D69.59 Other secondary thrombocytopenia; I25.2 Old myocardial infarction
CPT/HCPCS: 36415; 80053; 81003; 82140; 85025; 85610; 94640; 94760; 95851-GO; 97110-GP; 97116-GP; 97535-GO; A9270-GY; J7620-GY

== ENCOUNTER 2025-01-17 12:06 | Inpatient (IN) | payer MEDICARE, MEDICAID ==
[2025-01-17] MEDS ORDERED: Sodium Chloride 0.9% 10 ML Syringe FLUSH PRN (12:18)
[2025-01-17 12:36] LABS: BASOPHILS PERCENT AUTO 0.4 % (0.2-1.2); EOSINOPHILS ABSOLUTE AUTO 0.1 x10^3/uL (0.0-0.5); EOSINOPHILS PERCENT AUTO 1.1 % (0.0-4.0); HEMATOCRIT 40.6 % (40.0-52.0); HEMOGLOBIN 13.8 g/dL (14.0-18.0); IMMATURE GRAN ABSOLUTE AUTO 0.01 x10^3/uL (0.00-0.07); LYMPHOCYTES ABSOLUTE AUTO 1.6 x10^3/uL (1.0-4.8); LYMPHOCYTES PERCENT AUTO 19.6 % (25.0-50.0); MEAN CORPUSCULAR HEMOGLOBIN 30.5 pg (26.0-32.0); MEAN CORPUSCULAR VOLUME 89.8 fL (78.0-93.0); MONOCYTES ABSOLUTE AUTO 1.2 x10^3/uL (0.0-0.8); MONOCYTES PERCENT AUTO 14.9 % (2.0-11.0); NEUTROPHILS ABSOLUTE AUTO 5.2 x10^3/uL (1.8-7.7); NEUTROPHILS PERCENT AUTO 63.9 % (50.0-80.0); PLATELET COUNT,PLT 144 x10^3/uL (130-400); RED BLOOD CELL COUNT 4.52 x10^6/uL (4.5-6.0); WHITE BLOOD CELL COUNT,WBC 8.2 x10^3/uL (4.0-10.0)
[2025-01-17 12:44] LABS: APPEARANCE,URINE SLIGHTLY CLOUDY (CLEAR); BILIRUBIN,URINE NEGATIVE (NEGATIVE); COLOR,URINE YELLOW (YELLOW); GLUCOSE,URINE NEGATIVE (NEGATIVE); KETONES,URINE NEGATIVE (NEGATIVE); LEUKOCYTE ESTERASE,URINE SMALL (NEGATIVE); NITRITE,URINE NEGATIVE (NEGATIVE); OCCULT BLOOD,URINE NEGATIVE (NEGATIVE); PH,URINE 5.5 (5.0-8.0); PROTEIN,URINE NEGATIVE (NEGATIVE); UROBILINOGEN,URINE 0.2 EU/dL (0.2)
[2025-01-17 12:55] LABS: BACTERIA,URINE MANY /HPF (NOT SEEN); SQUAMOUS EPITHELIAL CELLS,UR FEW /HPF (NOT SEEN); WBC CASTS,URINE MODERATE /HPF (NOT SEEN)
[2025-01-17 12:55] LABS: INR 1.9 (0.9-1.1); PROTHROMBIN TIME 19.9 SEC (9.6-12.0); PTT,PARTIAL THROMBOPLSTIN TIME 41.7 SEC (23.5-33.2)
[2025-01-17 13:03] LABS: A/G RATIO 0.98; ALANINE AMINOTRANSFERASE,ALT 23 U/L (16-63); ALKALINE PHOSPHATASE 94 U/L (46-116); ASPARTATE AMNIOTRANSFERASE,AST 36 U/L (15-37); BILIRUBIN TOTAL 1.4 mg/dL (0.2-1.0); BLOOD UREA NITROGEN,BUN 50 mg/dL (7-18); CARBON DIOXIDE,CO2 35 mmol/L (21-32); CHLORIDE,CL 98 mmol/L (98-107); CREATINE KINASE,CK 199 U/L (39-308); CREATININE 2.2 mg/dL (0.70-1.30); GLUCOSE RANDOM 137 mg/dL (70-99); MAGNESIUM 2.4 mg/dL (1.8-2.4); POTASSIUM,K 4.1 mmol/L (3.5-5.1); PROTEIN TOTAL,TP 8.1 g/dL (6.4-8.2); SODIUM,NA 142 mmol/L (136-145)
[2025-01-17 13:12] LABS: ANION GAP 13.1 mmol/L (5-15); C-REACTIVE PROTEIN < 0.50 mg/dL (<=0.50); ESTIMATED GFR 32 mL/min (>=60)
[2025-01-17] MEDS: Lactated Ringers 1,000 ML IV ONE (13:37)
[2025-01-17] MEDS: cefTRIAXone 1 GM Vial IVPUSH ONE (13:37)
[2025-01-17 14:10] LABS: HCO3 VENOUS,POC 33 mmol/L (22-29); O2 SATURATION VENOUS,POC 58 %; PCO2 VENOUS,POC 48 mmHg (41-51); PH VENOUS,POC 7.45 pH (7.32-7.43); PO2 VENOUS,POC 30 mmHg
[2025-01-17] MEDS ORDERED: Ondansetron 4 MG Tab.DIS PO PRN (14:50)
[2025-01-17] MEDS: Lactated Ringers 1,000 ML IV SCH (15:23)
[2025-01-17] MEDS ORDERED: Warfarin 5 MG Tab PO SCH (17:45)
[2025-01-17] MEDS: Lactulose Soln 10 GM/15 ML 30 ML UD Cup PO SCH (18:09)
[2025-01-17] MEDS: levETIRAcetam 500 MG Tab PO SCH (21:08)
[2025-01-17] MEDS: Warfarin 5 MG Tab PO ONE (21:08)
[2025-01-17] MEDS: atorvaSTATin 10 MG Tab PO SCH (21:09)
[2025-01-17] MEDS: Metoprolol Succinate 50 MG Tab.ER PO SCH (21:09)
[2025-01-17] MEDS: Magnesium Oxide 400 MG Tab PO SCH (21:09)
[2025-01-17] MEDS: Digoxin 125 MCG Tab PO SCH (21:09)
[2025-01-17] MEDS: Albuterol HFA 18 Gm Inhaler INH PRN (21:19)
[2025-01-17] MEDS: Albuterol/Ipratropium 3.0-0.5 MG/3 ML Neb Soln NEB SCH (22:43)
[2025-01-18] MEDS: Levothyroxine 125 MCG Tab PO SCH (07:00)
[2025-01-18] MEDS: Formoterol/Mometasone 100-5 MCG 8.8 GM Inhaler IH SCH (07:23)
[2025-01-18] MEDS: Tiotropium Bromide 4 GM Inhalation Spray (2.5mcg/1 dose; 10 doses) INH SCH (07:24)
[2025-01-18 07:30] LABS: HEMOGLOBIN 12.3 g/dL (14.0-18.0); MEAN CORPUSCULAR HEMOGLOBIN 30.8 pg (26.0-32.0); MEAN CORPUSCULAR HGB CONC 34.2 g/dL (32.0-36.0); WHITE BLOOD CELL COUNT,WBC 6.3 x10^3/uL (4.0-10.0)
[2025-01-18 07:52] LABS: A/G RATIO 0.89; ALBUMIN 3.2 g/dL (3.4-5.0); BILIRUBIN TOTAL 1.3 mg/dL (0.2-1.0); CALCIUM 9.6 mg/dL (8.5-10.1); CREATININE 1.6 mg/dL (0.70-1.30); EST CRCL DRUG DOSING (CG) 44.53 mL/min; POTASSIUM,K 3.9 mmol/L (3.5-5.1); PROTEIN TOTAL,TP 6.8 g/dL (6.4-8.2)
[2025-01-18 07:54] LABS: ANION GAP 6.9 mmol/L (5-15)
[2025-01-18 08:04] LABS: INR 2.3 (0.9-1.1); PROTHROMBIN TIME 23.9 SEC (9.6-12.0)
[2025-01-18] MEDS: Spironolactone 25 MG Tab PO SCH (08:37)
[2025-01-18] MEDS: cefTRIAXone 1 GM Vial IVPUSH SCH (08:37)
[2025-01-18] MEDS: Bumetanide 1 MG Tab PO SCH (08:37)
[2025-01-18] MEDS: Acetaminophen 325 MG Tab PO PRN (08:38)
[2025-01-18] MEDS ORDERED: Non-Formulary Medication 1 Each (Umeclidinium Bromide [Incruse Ellipta*] 62.5 MCG Blst.W.D IH SCH (09:00)
[2025-01-18] MEDS: Nicotine 21 MG/24 Hr Patch TRDERM SCH (09:14)
[2025-01-18] MEDS: Multivitamin Tab PO SCH (13:01)
[2025-01-18] MEDS: Warfarin 5 MG Tab PO SCH (20:42)
[2025-01-19 06:41] LABS: HEMATOCRIT 36.4 % (40.0-52.0); HEMOGLOBIN 12.5 g/dL (14.0-18.0); MEAN CORPUSCULAR HEMOGLOBIN 30.6 pg (26.0-32.0); MEAN CORPUSCULAR HGB CONC 34.3 g/dL (32.0-36.0); MEAN CORPUSCULAR VOLUME 89.2 fL (78.0-93.0); RED BLOOD CELL COUNT 4.08 x10^6/uL (4.5-6.0); WHITE BLOOD CELL COUNT,WBC 6.5 x10^3/uL (4.0-10.0)
[2025-01-19 06:56] LABS: INR 2.6 (0.9-1.1); PROTHROMBIN TIME 26.8 SEC (9.6-12.0)
[2025-01-19 07:03] LABS: A/G RATIO 0.85; ALBUMIN 3.3 g/dL (3.4-5.0); BILIRUBIN TOTAL 0.9 mg/dL (0.2-1.0); CALCIUM 9.4 mg/dL (8.5-10.1); CREATININE 1.6 mg/dL (0.70-1.30); EST CRCL DRUG DOSING (CG) 44.53 mL/min; POTASSIUM,K 4.1 mmol/L (3.5-5.1); PROTEIN TOTAL,TP 7.2 g/dL (6.4-8.2)
[2025-01-19 07:08] LABS: ANION GAP 9.1 mmol/L (5-15)
[2025-01-19] MEDS: Lactulose Soln 10 GM/15 ML 30 ML UD Cup PO SCH (10:05)
[2025-01-20] MEDS: Levothyroxine 150 MCG Tab PO SCH (06:32)
[2025-01-20 07:16] LABS: HEMATOCRIT 37.3 % (40.0-52.0); HEMOGLOBIN 12.8 g/dL (14.0-18.0); MEAN CORPUSCULAR HEMOGLOBIN 30.6 pg (26.0-32.0); MEAN CORPUSCULAR HGB CONC 34.3 g/dL (32.0-36.0); MEAN CORPUSCULAR VOLUME 89.2 fL (78.0-93.0); RED BLOOD CELL COUNT 4.18 x10^6/uL (4.5-6.0); WHITE BLOOD CELL COUNT,WBC 6.7 x10^3/uL (4.0-10.0)
[2025-01-20 07:36] LABS: INR 2.5 (0.9-1.1); PROTHROMBIN TIME 25.8 SEC (9.6-12.0)
[2025-01-20 08:11] LABS: A/G RATIO 0.85; ALBUMIN 3.5 g/dL (3.4-5.0); ANION GAP 10.2 mmol/L (5-15); BILIRUBIN TOTAL 0.8 mg/dL (0.2-1.0); CALCIUM 9.3 mg/dL (8.5-10.1); CREATININE 1.7 mg/dL (0.70-1.30); EST CRCL DRUG DOSING (CG) 41.91 mL/min; POTASSIUM,K 4.2 mmol/L (3.5-5.1); PROTEIN TOTAL,TP 7.6 g/dL (6.4-8.2)
[2025-01-20] MEDS: Metoprolol Succinate 50 MG Tab.ER PO ONE (08:36)
[2025-01-20] MEDS: Spironolactone 25 MG Tab PO SCH (08:41)
[2025-01-20] MEDS: Bumetanide 1 MG Tab PO SCH (08:41)
[2025-01-20] MEDS: Digoxin 500 MCG/2 ML Amp IVPUSH ONE (08:43)
[2025-01-20] MEDS: RIFAXIMIN 550 MG PO SCH (22:00)
[2025-01-21 17:03] VITALS: BP 96/54; PULSE 88
[2025-01-21] MEDS ORDERED: Warfarin 2.5 MG Tab PO SCH (21:00)
[2025-01-22 16:07] LABS: VITAMIN B1, WHOLE BLOOD 160 nmol/L (70-180)
== END 2025-01-21 16:55 | disposition home or self-care (01) | DRG 442 ==
LOC: VM.ED 12:06 → VM.MS 14:19
PROVIDERS: ADMIT Family Medicine; ATTEND Internal Medicine
DX: K76.82 Hepatic encephalopathy (principal); I13.0 Hypertensive heart and chronic kidney disease with heart failure and stage 1 through stage 4 chronic kidney disease, or unspecified chronic kidney disease; N17.9 Acute kidney failure, unspecified; N30.00 Acute cystitis without hematuria; Z68.41 Body mass index [BMI] 40.0-44.9, adult; J96.11 Chronic respiratory failure with hypoxia; I48.92 Unspecified atrial flutter; I50.32 Chronic diastolic (congestive) heart failure; E86.0 Dehydration; I25.10 Atherosclerotic heart disease of native coronary artery without angina pectoris; I48.91 Unspecified atrial fibrillation; D69.6 Thrombocytopenia, unspecified; E66.01 Morbid (severe) obesity due to excess calories; J44.9 Chronic obstructive pulmonary disease, unspecified; E78.00 Pure hypercholesterolemia, unspecified; E11.51 Type 2 diabetes mellitus with diabetic peripheral angiopathy without gangrene; G47.33 Obstructive sleep apnea (adult) (pediatric); N18.9 Chronic kidney disease, unspecified; E03.9 Hypothyroidism, unspecified; D63.1 Anemia in chronic kidney disease; K70.30 Alcoholic cirrhosis of liver without ascites; Z79.01 Long term (current) use of anticoagulants; Z88.8 Allergy status to other drugs, medicaments and biological substances; Z79.899 Other long term (current) drug therapy; Z79.51 Long term (current) use of inhaled steroids; Z98.49 Cataract extraction status, unspecified eye; Z99.81 Dependence on supplemental oxygen; Z98.890 Other specified postprocedural states
CPT/HCPCS: 36415; 70450; 71045; 80053; 80162; 81001; 82140; 82550; 82607; 82803; 82947; 83735; 84425; 84443; 84484; 85025; 85027; 85610; 85730; 86140; 87086; 87088; 93005; 93010; 94640; 94760; 96361; 96374; 97116-GP; 97161-GP; 97165-GO; 97535-GO; 99284; 99285-25; A9270-GY; J0696; J1160; J7120